=== PATIENT | male | born 1995 | race American Indian/Alaskan Native ===

== ENCOUNTER 2016-04-14 12:13 | Emergency (ER) | payer MEDICAID, OTHER ==
[2016-04-14 12:24] VITALS: BP 123/77
--- NOTE | 2016-04-14 13:56 | Emergency Department Report ---
Minor Respiratory - HPI Chief Complaint: Upper Respiratory Infection Stated Complaint: DIFFICULTY SWALLOWING/NECK/HEAD PAIN Time Seen by Provider: 04/14/16 13:45 Duration: 10 days Pain Location: Throat Severity: moderate Minor Respiratory: Yes Rhinorrhea, Yes Sore Throat, Yes Able to Tolerate Fluids , Yes Sick Contacts, Yes Fever, No Ear Pain, No Cough, No Hemoptysis, No Chest Pain, No Shortness of Breath Other History: Pt reports congestion, sore throat x 1.5 weeks. Reports has pain in neck and head as well. Denies neck stiffness. Has had low grade fevers. ED Review of Systems ROS: Stated complaint: DIFFICULTY SWALLOWING/NECK/HEAD PAIN Other details as noted in HPI Comment: All other systems reviewed and negative Constitutional: fever. denies: chills Eyes: denies: eye pain, eye discharge, vision change ENT: throat pain, congestion. denies: ear pain Respiratory: denies: cough, shortness of breath, wheezing Cardiovascular: denies: chest pain, palpitations Endocrine: no symptoms reported Gastrointestinal: denies: abdominal pain, nausea, diarrhea Genitourinary: denies: urgency, dysuria Musculoskeletal: denies: back pain, joint swelling, arthralgia Skin: denies: rash, lesions Neurological: denies: headache, weakness, paresthesias Psychiatric: denies: anxiety, depression Hematological/Lymphatic: denies: easy bleeding, easy bruising ED Past Medical Hx - Past Medical History Previous Medical History?: No - Surgical History Past Surgical History?: No - Social History Smoking Status: Never Smoker Substance Use Type: None - Medications Home Medications: Home Medications Medication Instructions Recorded Confirmed Last Taken Type Amoxicillin/K Clav Tab [Augmentin 1 tab PO Q12HR #20 tab 04/14/16 Unknown Rx 875 mg] methylPREDNISolone [Medrol] 4 mg PO QAM #1 tab.ds.pk 04/14/16 Unknown Rx Minor Respiratory Exam - Exam General: Vital signs noted. No distress. Alert and acting appropriately. HEENT: Yes Pharyngeal Erythema, Yes Pharyngeal Exudates (3+ exudative tonsillitis w/o evidence for peritonsillar abscess.), Yes Moist Mucous Membranes , Yes Rhinorrhea, Yes Maxillary Tenderness, No Conjuctival Injection, No Frontal Tenderness Ear: Neither TM Bulge, Neither TM Erythema, Neither EAC Pain, Neither EAC Discharge Neck: Yes Adenopathy, Yes Supple Lungs: Yes Good Air Exchange, No Wheezes, No Ronchi, No Stridor, No Cough, No Labored Respirations, No Retractions, No Use of Accessory Muscles, No Other Abnormal Lung Sounds Heart: Yes Regular, No Murmur Abdomen: Yes Normal Bowel Sounds, No Tenderness, No Peritoneal Signs Skin: No Rash, No Edema Neurologic: Alert and oriented, no deficits. No evidence of meningitis. Neck shows FROM. Musculoskeletal: Unremarkable. ED Course Vital Signs 04/14/16 12:22 Temperature 99.8 F H Pulse Rate 89 Respiratory 18 Rate Blood Pressure 123/77 O2 Sat by Pulse 98 Oximetry - Reevaluation(s) Reevaluation #1: 04/14/16 13:53 NAD, stable for d/c. ED Medical Decision Making - Medical Decision Making Pt with sinusitis and tonsillitis. Will start antibiotics and steroids. Follow with PCP in 3-4 days. - Differential Diagnosis tonsillitis, sinusitis Critical care attestation.: If time is entered above; I have spent that time in minutes in the direct care of this critically ill patient, excluding procedure time. ED Disposition Clinical Impression: Exudative tonsillitis Sinusitis, acute maxillary Qualifiers: Recurrence: non-recurrent Qualified Code(s): J01.00 - Acute maxillary sinusitis , unspecified Disposition: DISCHARGED TO HOME OR SELFCARE Is pt being admited?: No Condition: Good Instructions: Sinusitis (ED), Tonsillitis (ED) Prescriptions: Amoxicillin/K Clav Tab [Augmentin 875 mg] 1 tab PO Q12HR #20 tab methylPREDNISolone [Medrol] 4 mg PO QAM #1 tab.oren Referrals: PRIMARY CARE, [Primary Care Provider] - 3-5 Days Time of Disposition: 13:54
== END 2016-04-14 14:02 | disposition home or self-care (01) ==
LOC: ED 12:13
DX: J01.00 Acute maxillary sinusitis, unspecified (principal); J03.90 Acute tonsillitis, unspecified
CPT/HCPCS: 99282